=== PATIENT | female | born 1980 | race Caucasian/White ===

== ENCOUNTER 2022-10-17 10:19 | Inpatient (IN) | payer OTHER ==
[~2022-10-17] VITALS: Ht 162.6 cm; Wt 72.6 kg
[2022-10-17] MEDS ORDERED: PRENATA PO (14:38)
[2022-10-17] MEDS ORDERED: IRON PO (14:38)
[2022-10-18] MEDS ORDERED: PRENATAL + DHA1 EAC1 (16:11)
[2022-10-18] MEDS ORDERED: IRON236 MG (16:11)
== END 2022-10-20 14:25 | disposition home or self-care (01) | DRG 785 ==
LOC: O/R 10-18 09:38 → OB/GYN 10-18 12:15
PROVIDERS: ADMIT Obstetrics & Gynecology Maternal & Fetal Medicine; ATTEND Obstetrics & Gynecology Maternal & Fetal Medicine
PROC: 4A1HXCZ Monitoring of Products of Conception, Cardiac Rate, External Approach (ICD-10-PCS; 2022-10-18)
PROC: 10D00Z1 Extraction of Products of Conception, Low, Open Approach (ICD-10-PCS; principal; 2022-10-19)
PROC: 0UB70ZZ Excision of Bilateral Fallopian Tubes, Open Approach (ICD-10-PCS; 2022-10-19)
DX: O34.211 Maternal care for low transverse scar from previous cesarean delivery (principal); Z30.2 Encounter for sterilization; Z3A.39 39 weeks gestation of pregnancy; Z37.0 Single live birth; Z20.822 Contact with and (suspected) exposure to COVID-19